=== PATIENT | female | born 1970 | race Caucasian/White ===

== ENCOUNTER 2024-07-16 09:36 | Day surgery (SDC) | payer OTHER, SELFPAY ==
[2024-07-16] MEDS: SODIUM CHLORIDE 0.9% 1,000 ML 84 ML IV (10:30)
[2024-07-16 10:41] VITALS: BMI 20.1
[2024-07-16 10:46] VITALS: BP 153/88; PULSE 95; RESP 15; TEMP 36.4; O2SAT 99
--- NOTE | 2024-07-16 11:26 | P.HP_ITS ---
History of Present Illness History of Present Illness Date Patient Seen: 07/16/24 Time Patient Seen: 11:26 Chief complaint: SDC Narrative: Eileen is a 54-year-old woman who is here for her first screening colonoscopy. No family history of colon cancer. [facility] Social History Smoking Status: Never smoker alcohol intake: current Meds Home Medications and Allergies Home Medications Medication Instructions Recorded Confirmed Type sodium,potassium,mag sulfates 17.5 See Rx Instructions PO .COMPLEX 06/11/24 Rx gram-3.13 gram-1.6 gram oral soln #354 mL (Suprep Bowel Prep Kit) lisinopril 10 mg tablet mg DAILY 07/16/24 History Allergies Allergy/AdvReac Type Severity Reaction Status Date / Time phenobarbital Allergy Verified 07/16/24 10:40 Exam Vital Signs (past 8 hours): - 07/16/24 10:46 Temperature 97.5 F L Pulse Rate 95 H Respiratory Rate 15 Blood Pressure 153/88 H Pulse Oximetry 99 Oxygen Delivery Method Room Air Oxygen Delivery Method Room Air Const General: healthy appearing Resp Effort & Inspection: normal respiratory effort Assessment & Plan Assessment and plan (1) Colon cancer screening: Status: Acute Plan We reviewed the risks and benefits of colonoscopy and she would like to proceed. Time-Based Coding :: [TOTAL MINUTES] spent with patient and on the chart (including review of chart, obtaining history, exam, reviewing outside data, placing orders, documenting exam and treatment plan, and counseling patient) on [DATE]. [employer] Document charge(s): No
[2024-07-16 12:04] VITALS: BP 109/63; PULSE 99; RESP 16; TEMP 36.3; O2SAT 98
--- NOTE | 2024-07-16 12:09 | PM.OP.COLON ---
Operative Date/Time/Diagnoses Date of procedure: 07/16/24 Time of procedure: 12:09 Pre-op diagnosis: Colon cancer screening Post-op diagnosis: same Procedure & Clinicians Study performed: Colonoscopy Same procedure as scheduled: Yes Surgeon: Ken Smith Procedure Notes Procedure in detail: Surgeon: Ken Smith MD Anesthesia: Amelia Rivera MD Procedure: The patient was brought to the endoscopy suite, placed in left lateral decubitus position. The patient was connected to monitoring devices. A time-out was performed. Sedation was administered. Once the patient was adequately sedated, a digital rectal exam was performed and was normal. The scope was then inserted and advanced to the cecum where the appendiceal orifice was identified and photographed. The scope was then slowly withdrawn over greater than 6 minutes. The mucosa was thoroughly inspected. No abnormalities were identified. The scope was retroflexed in the rectum. The scope was straightened and removed. The patient was awakened and brought to recovery. Scope withdrawal time: 6 minutes Sedation time: 20 minutes EBL: 0 Findings: Normal colon Post-procedure Recommendations: Colonoscopy in 10 years Disposition: PACU
[2024-07-16 12:10] VITALS: BP 100/56; PULSE 97; RESP 22; O2SAT 96
[2024-07-16 12:15] VITALS: BP 104/58; PULSE 96; RESP 19; TEMP 36.3; O2SAT 97
[2024-07-16 12:20] VITALS: BP 124/65; PULSE 90; RESP 18; O2SAT 98
== END 2024-07-16 12:33 | disposition home or self-care (01) ==
PROVIDERS: PCP Nurse Practitioner; Referring Provider Surgery; Visit Provider Surgery
PROC: 0DJD8ZZ Inspection of Lower Intestinal Tract, Via Natural or Artificial Opening Endoscopic (ICD-10-PCS; CPT 45378; principal; 2024-07-16 11:00)
DX: Z12.11 Encounter for screening for malignant neoplasm of colon (principal); I10 Essential (primary) hypertension
CPT/HCPCS: G0121; J2704